=== PATIENT | male | born 1975 | race Two or more races ===

== ENCOUNTER 2019-06-18 12:31 | Inpatient (IN) | payer SELFPAY ==
[~2019-06-18] VITALS: Ht 157.5 cm; Wt 63.8 kg
[2019-06-18] MEDS ORDERED: SODIUM CHLORIDE 0.9% 1,000 ML IV ONE ×2 (12:51)
[2019-06-18] MEDS ORDERED: InsuLIN REG 1unit/0.01ml Soln (100units/ml) IV ONE (13:00)
[2019-06-18 13:32] LABS: Basophils # (auto) 0 uL; Basophils % (auto) 0.3 % (0.0-2.0); Eosinophils # (auto) 0 uL; Mean Corpuscular Hgb Conc. 33.5 g/dL (32.0-36.0); Monocytes # (auto) 0.4 uL
[2019-06-18 13:34] LABS: Eosinophils % (auto) 0.2 % (0.0-7.0); Hematocrit 53.1 % (41.0-53.0); Hemoglobin 17.8 g/dL (13.5-17.5); Lymphocytes % (auto) 20.9 % (10.0-50.0); Mean Corpuscular Hemoglobin 32.1 pg (28.0-32.0); Mean Corpuscular Volume 95.9 fL (80.0-100.0); Monocytes % (auto) 4.2 % (0.0-12.0); Neutrophils # (auto) 7.1 uL; Neutrophils % (auto) 74.4 % (37.0-80.0); Nucleated Red Blood Cells % 0.4 %; Platelet Count (auto) 256 10^3/uL (140-450); Red Blood Cells 5.54 10^6/uL (4.5-5.90); Red Cell Distribution Width 12.6 % (11.8-14.3); White Blood Cell 9.5 10^3/uL (4.4-10.8)
[2019-06-18 13:47] LABS: Urine Bacteria NONE SEEN /hpf (None Seen); Urine Blood Negative /uL (Negative); Urine Hyaline Cast FEW /lpf (0 - 2); Urine Specific Gravity 1.032 (1.001-1.035); Urine WBC 1 /hpf (0 - 3)
[2019-06-18 14:12] LABS: Alanine Aminotransferase 38 U/L (16-61); Anion Gap 22 (5-15); Aspartate Aminotransferase 17 U/L (15-37); BUN/Creatinine Ratio 20.2; Blood Urea Nitrogen 26 mg/dL (7-18); Calcium 9.3 mg/dL (8.5-10.1); Carbon Dioxide 16 mmol/L (21-32); Chloride 90 mmol/L (98-107); GFR African American 78 mL/min; GFR Non-African American 64 mL/min; Potassium 4.6 mmol/L (3.5-5.1); Sodium 128 mmol/L (136-145)
[2019-06-18 14:16] LABS: Alkaline Phosphatase 160 U/L (45-117); Bilirubin, Total 0.8 mg/dL (0.2-1.0); Total Protein 8.6 g/dL (6.4-8.2)
[2019-06-18 14:23] LABS: Glucose 458 mg/dL (74-106)
[2019-06-18] MEDS ORDERED: DEXTROSE (50%) 50ML SYRG IV PRN (15:00)
[2019-06-18] MEDS ORDERED: ACCU-CHEK COMFORT CURVE STRIP VI SCH ×2 (15:00→16:00)
[2019-06-18 15:24] LABS: Magnesium 2.2 mg/dL (1.6-2.6)
[2019-06-18] MEDS: InsuLIN R (HUMAN) 100 UNITS in SODIUM CHL 0.9% 99 ML IV SCH ×2 (15:58→17:37)
[2019-06-18] MEDS: SODIUM CHLORIDE 0.9% 1,000 ML IV SCH ×2 (15:59→16:57)
[2019-06-18] MEDS ORDERED: CEFTRIAXONE SODIUM 2 GM in D5W 5% 50 ML IV ONE (16:15)
[2019-06-18] MEDS ORDERED: NITROGLYCERIN 0.4 MG SL TAB SL PRN (16:15)
[2019-06-18] MEDS ORDERED: MORPHINE SULF INJ 2 MG/ML SYRINGE 1ML IV PRN (16:15)
[2019-06-18] MEDS ORDERED: MAGNESIUM SULFATE 1GM/100ML 200 ML IV ONE (16:15)
[2019-06-18] MEDS ORDERED: POTASSIUM CHL 20MEQ/100ML 200 ML IV PRN (16:15)
[2019-06-18] MEDS: ACCU-CHEK COMFORT CURVE STRIP VI SCH ×6 (17:39→22:36)
[2019-06-18 18:11] LABS: Calcium 8.1 mg/dL (8.5-10.1); Potassium 3.9 mmol/L (3.5-5.1)
[2019-06-18 18:13] LABS: BUN/Creatinine Ratio 22.2
[2019-06-18] MEDS ORDERED: SODIUM CHLORIDE 0.9% 1,000 ML IV SCH ×2 (18:53→20:53)
--- NOTE | 2019-06-18 19:57 | NUR ---
BG 211 - CONTINUE 2 UNITS/HR OF INSULIN GTT ON ALGORITHM #1
[2019-06-18 20:00] VITALS: BP 104/57
--- NOTE | 2019-06-18 20:00 | NUR ---
OPENING NOTE: A&OX4. TAMAZIGHT SPEAKING PRIMARILY BUT UNDERSTANDS AND SPEAKS SOME [place]. , JCARLOS, AT BEDSIDE SPEAKS AND UNDERSTANDS [place] WELL. PATIENT AND HIS REPORT THAT HE GOES TO [facility] FOR MEDICAL CARE AND HIS ANNUAL PHYSICAL. HE STATES THAT HE WENT THERE THE DAY BEFORE YESTERDAY AND HAD BLOOD WORK DONE, AND IN OFFICE HIS BG WAS SO THEY STARTED HIM ON METFORMIN 500 MG PO BID. HE SAID HE TOOK TWO DOSES WHEN THE MD FROM [facility] CALLED AND STATED THAT HIS LAB WORK WAS ABNORMAL AND GO TO THE ER. THE PATIENT REPORTS THAT HE'S NEVER BEEN TOLD HE HAD DIABETES NOR ANY OTHER MEDICAL CONDITIONS. NSR, HR 70s. SBP 100s. LS CTA, EVEN AND UNLABORED BREATHING. SpO2>95% ON RA. ABD SOFT. HYPOACTIVE BS. LBM 06/15/19 WITH NO BLOOD, DARK STOOL, DIARRHEA OR CONSTIPATION. DENIES NAUSEA AND VOMITING. REPORTS HE HAS NOT VOIDED SINCE ADMITTED TO ER. 20 G PIV TO RIGHT AC, CDI AND PATENT, RUNNING INSULIN GTT AT 2 UNITS/HR. 20 G PIV TO LEFT AC, CDI AND PATENT, NOT RUNNING ANYTHING. DENIES PAIN, CHEST PAIN, SOB, HEADACHE, DIZZINESS, N/V, NUMBNESS AND TINGLING. REINFORCED POC. MAINTAINED PATIENT SAFETY: BED LOCKED AND IN THE LOWEST POSITION, FREQUENT VISUAL CHECKS. ENCOURAGED PATIENT AND TO VERBALIZE QUESTIONS AND CONCERNS. PATIENT AND VERBALIZED UNDERSTANDING OF POC. WILL CONT CARE
--- NOTE | 2019-06-18 20:15 | NUR ---
VOIDED 600 ML JOHNNA URINE
--- NOTE | 2019-06-18 20:52 | NUR ---
RECEIVED REPORT FROM FABIEN CHOW Addendum: 06/18/19 at 2051 by Yuki Kunz RN RN MISTAKEN TIME - CORRECTED TIME 1929
[2019-06-18 21:00] VITALS: BP 101/64
--- NOTE | 2019-06-18 21:10 | NUR ---
BG 181 - CONTINUE WITH 2 UNITS/HR INSULIN GTT ON ALGORITHM 1
[2019-06-18 21:13] LABS: Calcium 8.1 mg/dL (8.5-10.1); Potassium 3.7 mmol/L (3.5-5.1)
--- NOTE | 2019-06-18 21:19 | NUR ---
PASSWORD/NEXT OF KIN: PW: "[phone]" JCARLOS CLEMENTINA (NOT LEGALLY , BUT BEEN TOGETHER FOR 19 YEARS) - [phone] WENDIE CARMEN - (DAUGHTER) [phone]
[2019-06-18 22:00] VITALS: BP 91/54
--- NOTE | 2019-06-18 22:10 | NUR ---
BP 90s - PATIENT LYING ON HIS SIDE, DENIES HEADACHE DIZZINESS OR CHEST PAIN
--- NOTE | 2019-06-18 22:36 | NUR ---
BG 143 - DECREASED INSULIN GTT RATE TO 1 UNIT/HR
[2019-06-18 23:00] VITALS: BP 95/57
[2019-06-19] VITALS (9 sets, daily range): BP systolic 93–115; BP diastolic 47–74
--- NOTE | 2019-06-19 00:05 | NUR ---
BG 67 - INSULIN GTT STOPPED, 120 ML OF ORANGE JUICE GIVEN: PATIENT REPORTS FEELING DIZZY
--- NOTE | 2019-06-19 00:17 | NUR ---
LAB AT BEDSIDE, REPORTS FEELING BETTER AT THIS TIME, WILL CHECK BG IN THE NEXT FEW MINUTES
[2019-06-19] MEDS: ACCU-CHEK COMFORT CURVE STRIP VI SCH ×7 (00:29→15:32)
--- NOTE | 2019-06-19 00:29 | NUR ---
BG 76 - DIZZINESS RESOLVED - WILL CONT CARE
--- NOTE | 2019-06-19 00:30 | NUR ---
PIV ASSESSMENT: BILATERAL 20 G PIV, CDI AND PATENT, NO PAIN OR S/S OF INFILTRATION OR PHLEBITIS
[2019-06-19] MEDS ORDERED: METF-370 PO ×2 (00:42→12:55)
--- NOTE | 2019-06-19 01:06 | NUR ---
BG 151
[2019-06-19 01:22] LABS: BUN/Creatinine Ratio 25.6; Calcium 7.7 mg/dL (8.5-10.1); Potassium 3.4 mmol/L (3.5-5.1)
--- NOTE | 2019-06-19 01:27 | NUR ---
MARIA M GARZA NP
--- NOTE | 2019-06-19 01:55 | NUR ---
NOTIFIED SWAPNIL GARZA OF LATEST LABS AND BG: PER SWAPNIL GARZA, HE WILL REVIEW AND PLACE ORDERS NECESSARY
--- NOTE | 2019-06-19 02:00 | NUR ---
BP 87/56 (MAP 67) - PATIENT ASLEEP - WILL CONT CARE
[2019-06-19] MEDS ORDERED: DEXTROSE (50%) 50ML SYRG IV PRN (03:00)
[2019-06-19] MEDS ORDERED: SODIUM CHLORIDE 0.9% 1,000 ML IV SCH (03:00)
[2019-06-19] MEDS: InsuLIN REG 1unit/0.01ml Soln (100units/ml) SC SCH ×4 (03:04→15:32)
--- NOTE | 2019-06-19 03:05 | NUR ---
BP NOW MID 90s - WILL CONT CARE
--- NOTE | 2019-06-19 03:06 | NUR ---
BG 189 - SCHEDULED 4 AM SLIDING SCALE INSULIN DOSE GIVEN EARLY D/T SEVERAL HOURS WITHOUT INSULIN COVERAGE
--- NOTE | 2019-06-19 03:20 | NUR ---
REPORT CALLED TO FABIEN VERONICA
--- NOTE | 2019-06-19 03:40 | NUR ---
LEFT ER WITH [employer]ONER'S JUROR AND TELE MONITOR
--- NOTE | 2019-06-19 04:00 | NUR ---
Telemetry admit from ER NIDABOGDAN admitted to Telemetry unit after SBAR received. Patient oriented to Tejal Vidal RN primary RN, unit, room, bed, and unit policies regarding patient care and visiting hours. Patient now on continuous telemetry monitoring, tele box # [id number] and telemetry reading on arrival to unit is SR. Patient weighed by bedscale and encouraged to call if they need something. All questions and concerns addressed, patient and verbalized understanding, will continue to monitor Note: []
--- NOTE | 2019-06-19 07:42 | NUR ---
Opening Shift Note Assumed care of patient, awake and alert. No S/S of distress/SOB or pain. Instructed on POC and to call for assist PRN, will continue to monitor for changes Q1hr and PRN.
[2019-06-19] MEDS ORDERED: ENOXAPARIN SOD 40 MG/0.4 ML SYRINGE SC SCH (10:00)
[2019-06-19 10:44] LABS: Basophils # (auto) 0 uL; Basophils % (auto) 0.6 % (0.0-2.0); Eosinophils # (auto) 0.1 uL; Eosinophils % (auto) 0.8 % (0.0-7.0); Hematocrit 43.7 % (41.0-53.0); Hemoglobin 15.1 g/dL (13.5-17.5); Lymphocytes # (auto) 2.2 uL; Lymphocytes % (auto) 33.7 % (10.0-50.0); Mean Corpuscular Hemoglobin 32.9 pg (28.0-32.0); Mean Corpuscular Hgb Conc. 34.6 g/dL (32.0-36.0); Mean Corpuscular Volume 95.1 fL (80.0-100.0); Monocytes # (auto) 0.3 uL; Neutrophils # (auto) 4.1 uL; Neutrophils % (auto) 60.9 % (37.0-80.0); Nucleated Red Blood Cells % 0.1 %; Platelet Count (auto) 187 10^3/uL (140-450); Red Cell Distribution Width 12.6 % (11.8-14.3); White Blood Cell 6.7 10^3/uL (4.4-10.8)
--- NOTE | 2019-06-19 11:00 | NUR ---
AT BEDSIDE WITH PT PT ALERT AND ASKED TO WALK THE HALLWAYS, TOLERATING WELL
[2019-06-19 11:07] LABS: Potassium 3.3 mmol/L (3.5-5.1)
[2019-06-19 11:10] LABS: BUN/Creatinine Ratio 19.6
--- NOTE | 2019-06-19 11:35 | NUR ---
NUTRITION CONSULT/ASSESSMENT NOTES Please refer to link notes of nutrition screen form filed under the intervention section of the plan of care for further details. Est. Needs: 1600 kcal to 1900 kcal (25-30 kcal/kgBW), 64 gms to 77 gms pro (1.0-1.2 gms/kgBW). Will continue to monitor pertinent labs and reassess nutrient need prn Thank you for this consult. Addendum: 06/19/19 at [address] Amended: Links added.
[2019-06-19] MEDS ORDERED: INSULIN LANTUS (GLARGINE) 1 /0.01ml (100units/ml) SC ONE (12:15)
[2019-06-19] MEDS ORDERED: metFORMIN HYDROCHLORIDE 500 MG TAB PO ONE (12:30)
--- NOTE | 2019-06-19 12:30 | NUR ---
MD RAMOS ROUNDED ON OT NEW ORDERS NOTED, PT TO DISCHARGE AFTER 1600 BS TO SEE IF NEW ORDERS EFFECTIVE
[2019-06-19] MEDS ORDERED: GLIP5TAB12 PO (12:55)
[2019-06-19] MEDS ORDERED: POTASSIUM CHL 20 Meq TABLET PO ONE (13:00)
[2019-06-19 13:44] LABS: INR < 0.93 (0.9-1.15); Partial Thromboplastin Time 30.2 sec (23.64-32.05)
[2019-06-19 13:52] LABS: Potassium 3.5 mmol/L (3.5-5.1)
[2019-06-19 14:02] LABS: Albumin 2.9 g/dL (3.4-5.0); BUN/Creatinine Ratio 18.1; Bilirubin, Total 0.6 mg/dL (0.2-1.0); Calcium 7.8 mg/dL (8.5-10.1); Magnesium 2.1 mg/dL (1.6-2.6); Total Protein 5.8 g/dL (6.4-8.2)
--- NOTE | 2019-06-19 15:54 | NUR ---
pt signed discharged paperwork, both iv removed tolerated well no bleeding noted, tele monitor removed sent to icu, pt has no c/o pain or discomfort, no respiratory distress noted
== END 2019-06-19 16:45 | disposition home or self-care (01) | DRG 638 ==
LOC: ER 12:38 → TELE 12:39 → TELE-WESTW 06-19 03:45
PROVIDERS: ADMIT Nurse Practitioner Acute Care; ATTEND Internal Medicine
DX: E11.10 Type 2 diabetes mellitus with ketoacidosis without coma (principal); E87.3 Alkalosis; E87.1 Hypo-osmolality and hyponatremia; F17.210 Nicotine dependence, cigarettes, uncomplicated; E86.0 Dehydration; K59.00 Constipation, unspecified; E87.6 Hypokalemia; Z83.3 Family history of diabetes mellitus
CPT/HCPCS: 36415; 36600; 71045; 74176; 80048; 80053; 80061; 81001; 82010; 82805; 82962; 83036; 83735; 83930; 84100; 84484; 85025; 85610; 85730; 93005; 96361; 96365; 96367; 96375; G0378; J0696; J1815; J7060